=== PATIENT | female | born 2000 | race Caucasian/White ===

== ENCOUNTER 2022-10-04 12:33 | Emergency (ER) | payer BC ==
[2022-10-04] MEDS ORDERED: Ondansetron ODT 4 MG TAB ONE (15:12)
[2022-10-04 15:35] LABS: MONO NEGATIVE CONTROL ZONE White (Negative) (White); MONO POSITIVE CONTROL Pink Line (Positive) (PINK/RED); Mononucleosis NEGATIVE (NEGATIVE)
== END 2022-10-04 16:30 | disposition home or self-care (01) ==
LOC: CSHERS 12:33
DX: J01.10 Acute frontal sinusitis, unspecified (principal); J02.9 Acute pharyngitis, unspecified
CPT/HCPCS: 36415; 86308; 87081; 87430; 87804; 99284; Q0162